=== PATIENT | female | born 1990 | race American Indian/Alaskan Native ===

== ENCOUNTER 2020-04-28 23:46 | Observation (INO) | payer SELFPAY ==
[2020-04-29 01:26] LABS: Basophils % (Auto) 0.3 % (0.0-1.8); Eosinophils % (Auto) 0.4 % (0.0-4.3); Hematocrit 40.7 % (30.3-42.9); Hemoglobin 13.6 gm/dl (10.1-14.3); Lymphocytes # (Auto) 2.9 K/mm3 (1.2-5.4); Lymphocytes % (Auto) 32.3 % (13.4-35.0); Mean Corpuscular HGB Conc 33 % (30-34); Mean Corpuscular Volume 91 fl (79-97); Monocytes # (Auto) 0.8 K/mm3 (0.0-0.8); Monocytes % (Auto) 8.4 % (0.0-7.3); Platelet Count 288 K/mm3 (140-440); Red Blood Count 4.45 M/mm3 (3.65-5.03); Red Cell Distribution Width 13.8 % (13.2-15.2)
--- NOTE | 2020-04-29 01:29 | Emergency Department Report ---
ED General Adult HPI - General Chief complaint: Nausea/Vomiting/Diarrhea Stated complaint: /VOMITING BLOOD PUI?: No Time Seen by Provider: 04/29/20 01:24 Source: patient Mode of arrival: Ambulatory Limitations: No Limitations - History of Present Illness Initial comments: Patient is a 29-year-old female that presents emergency room with complaints of nausea and vomiting. Patient states that her nausea vomiting started yesterday. Patient states there is nausea vomiting is worsening. Patient states she is now seeing blood streaks in her vomitus. Denies clots in her vomit. Patient denies abdominal pain. Patient denies fever and chills. Patient denies cough. Patient denies pelvic pain. Patient denies vaginal bleeding. Patient denies loss of fluid per vagina. Patient denies dysuria. Patient states her nausea vomiting is better with rest and NPO. Patient states the vomiting is worse with eating and movement. Patient states she is approximately 10 weeks . Patient states she did a home test and then saw her [facility] and had a urine test at the [facility] office. Patient states she has never had an ultrasound. Patient states she has not confirmed IUP yet. Patient states the CL[facility]D DEVELOPER advised her to see a high risk because she has had 3 C-sections already. Patient is a G5, . Patient denies recent travel. Patient denies recent international travel. Patient denies exposure to the novel coronavirus. Patient denies sick contacts. Patient denies fever and chills. Patient denies cough. Patient denies diarrhea. Patient denies coming in contact with anybody with symptoms of the novel coronavirus. -: Sudden Severity scale (0 -10): 0 Improves with: rest Worsens with: eating Associated Symptoms: nausea/vomiting. denies: confusion, chest pain, cough, diaphoresis, fever/chills, headaches, loss of appetite, malaise, rash, seizure, shortness of breath, syncope, weakness Treatments Prior to Arrival: none - Related Data Allergies Allergy/AdvReac Type Severity Reaction Status Date / Time No Known Allergies Allergy Unverified 04/29/20 00:26 ED Review of Systems ROS: Stated complaint: /VOMITING BLOOD Other details as noted in HPI Constitutional: denies: chills, fever Eyes: denies: eye pain, eye discharge, vision change ENT: denies: ear pain, throat pain Respiratory: denies: cough, shortness of breath, wheezing Cardiovascular: denies: chest pain, palpitations Endocrine: no symptoms reported Gastrointestinal: as per HPI, nausea, vomiting. denies: abdominal pain, diarrhea Genitourinary: denies: urgency, dysuria, discharge Musculoskeletal: denies: back pain, joint swelling, arthralgia Skin: denies: rash, lesions Neurological: denies: headache, weakness, paresthesias Psychiatric: denies: anxiety, depression Hematological/Lymphatic: denies: easy bleeding, easy bruising ED Past Medical Hx - Past Medical History Previous Medical History?: Yes Additional medical history: Obesity - Surgical History Past Surgical History?: Yes Additional Surgical History: X3. - Family History Family history: no significant - Social History Smoking Status: Never Smoker Substance Use Type: None ED Physical Exam - General Limitations: No Limitations General appearance: alert, in no apparent distress, obese - Head Head exam: Present: atraumatic, normocephalic - Eye Eye exam: Present: normal appearance - ENT ENT exam: Present: mucous membranes moist - Neck Neck exam: Present: normal inspection - Respiratory Respiratory exam: Present: normal lung sounds bilaterally. Absent: respiratory distress, wheezes, rales - Cardiovascular Cardiovascular Exam: Present: regular rate, normal rhythm. Absent: systolic murmur, diastolic murmur, rubs, gallop - GI/Abdominal GI/Abdominal exam: Present: soft, normal bowel sounds. Absent: distended, tenderness - Extremities Exam Extremities exam: Present: normal inspection - Back Exam Back exam: Present: normal inspection - Neurological Exam Neurological exam: Present: alert, oriented X3 - Psychiatric Psychiatric exam: Present: normal affect, normal mood - Skin Skin exam: Present: warm, dry, intact, normal color. Absent: rash ED Course Vital Signs 04/29/20 00:28 Temperature 98.0 F Pulse Rate 99 H Respiratory 18 Rate Blood Pressure 155/99 O2 Sat by Pulse 98 Oximetry - Reevaluation(s) Reevaluation #1: Patient complains of nausea. Patient states she has not vomited since being in the ER. Patient was given fluids and Zofran. 04/29/20 02:26 Reevaluation #2: I discussed all results with patient. I discussed plan of care with patient. Patient agrees with plan of care and admission. Patient to be admitted to the [facility] service. 04/29/20 03:40 - Consultations Consultation #1: I discussed case with Dr. Hassan. Dr. Hassan agrees with admission. Patient will be admitted to mother-baby. 04/29/20 03:40 ED Medical Decision Making - Lab Data Result diagrams: 04/29/20 00:55 04/29/20 00:55 - Radiology Data Radiology results: report reviewed Ultrasound Report Signed Patient: MARS NASH#: [id number] : 1990 Acct:[id number] Age/Sex: 29 / F ADM Date: 04/28/20 Loc: ED Attending Dr: Ordering Physician: ZAHIDA BARRIOS III, MD Date of Service: 04/29/20 Procedure(s): US transvaginal Accession Number(s): [id number] cc: ZAHIDA BARRIOS III, MD ULTRASOUND OBSTETRIC Indication: n/v. preg Findings: Transabdominal and transvaginal imaging is performed. There is a single, viable intrauterine . [place]-rump length = 2.66 cm = 9 weeks, 3 day(s). heart rate is 169 beats per minute. The ovaries are not visualized. There is no free fluid. Impression: Single, viable intrauterine with estimated sonographic age of 9 weeks, 3 day(s). . - Medical Decision Making Patient is a 29-year-old female that presents emergency room with complaints of nausea, vomiting, blood streaking in her vomitus, . Patient is a A1. Patient is currently 10 weeks . Patient has not had confirmatory ultrasound. Patient had labs done which are consistent with metabolic acidosis, hyperglycemia and ketones in the urine. Patient given fluids and antiemetics. Patient's antiemetics improved her nausea. Patient had an ultrasound done which confirms a 9-week IUP. Based on the patient's metabolic abnormalities, the patient will be admitted to the mother-baby and [facility] service for further evaluation and treatment and observation. I discussed this with the CLOUD DEVELOPER attending, Dr. Hassan. Dr. Hassan has recommended admission. - Differential Diagnosis Nausea, vomiting, , Critical Care Time: Yes Critical care time in (mins) excluding proc time.: 35 Critical care attestation.: If time is entered above; I have spent that time in minutes in the direct care of this critically ill patient, excluding procedure time. Critical Care Time: 35 MINUTES ED Disposition Clinical Impression: Hyperglycemia, Metabolic acidosis Nausea & vomiting Qualifiers: Vomiting type: unspecified Vomiting Intractability: non-intractable Qualified Code(s): R11.2 - Nausea with vomiting, unspecified Qualifiers: Weeks of gestation: 9 weeks Qualified Code(s): Z3A.09 - 9 weeks gestation of Disposition: DC-01 TO HOME OR SELFCARE Is pt being admited?: Yes Does the pt Need Aspirin: No Condition: Critical Time of Disposition: 03:40
[2020-04-29 01:43] LABS: Alanine Aminotransferase 12 units/L (7-56); Albumin 3.9 g/dL (3.9-5); Blood Urea Nitrogen 7 mg/dL (7-17); Calcium 9.6 mg/dL (8.4-10.2); Hemolysis Index 8
[2020-04-29 01:48] LABS: BUN/Creatinine Ratio 10
[2020-04-29] MEDS ORDERED: SODIUM CHLORIDE 0.9% 1000 ML 1,000 ML IV ONE ×2 (02:24→03:43)
[2020-04-29] MEDS ORDERED: ONDANSETRON 4 MG/2 ML INJ IV ONE (02:24)
--- NOTE | 2020-04-29 02:33 | Ultrasound Report ---
ULTRASOUND OBSTETRIC Indication: n/v. preg Findings: Transabdominal and transvaginal imaging is performed. There is a single, viable intrauterine . [place]-rump length = 2.66 cm = 9 weeks, 3 day(s). heart rate is 169 beats per minute. The ovaries are not visualized. There is no free fluid. Impression: Single, viable intrauterine with estimated sonographic age of 9 weeks, 3 day(s). Signer Name: Ryan Cabrera MD Signed: 04/29/2020 2:28 AM Workstation Name: [id number]
--- NOTE | 2020-04-29 02:33 | Ultrasound Report ---
ULTRASOUND OBSTETRIC Indication: n/v. preg Findings: Transabdominal and transvaginal imaging is performed. There is a single, viable intrauterine . [place]-rump length = 2.66 cm = 9 weeks, 3 day(s). heart rate is 169 beats per minute. The ovaries are not visualized. There is no free fluid. Impression: Single, viable intrauterine with estimated sonographic age of 9 weeks, 3 day(s). Signer Name: Ryan Cabrera MD Signed: 04/29/2020 2:28 AM Workstation Name: [id number]
[2020-04-29 02:56] LABS: Bacteria,Urine 1+ /HPF (Negative); Bilirubin,Urine NEG (Negative); Blood,Urine NEG (Negative); Color,Urine Straw (Yellow); Mucus,Urine FEW /HPF; Protein,Urine <15 mg/dL mg/dL (Negative); Urobilinogen,Urine < 2.0 mg/dL (<2.0)
[2020-04-29 06:51] VITALS: BP 131/86
[2020-04-29] MEDS ORDERED: SODIUM CHLORIDE 0.9% 1000 ML 1,000 ML IV SCH (11:30)
--- NOTE | 2020-04-29 13:03 | History and Physical Report ---
History of Present Illness Date of examination: 04/29/20 Date of admission: 04/29/20 03:38 Chief complaint: I'm saw some blood when I threw up History of present illness: Pt is a 29year old who presents to the Ed with complaint of nausea and vomiting in at approximately 9 weeks gestation. Pt reports seeing some blood in her vomitus. During the evaluation, patient was found to have markedly elevated blood sugar, severe glucosuria and ketones. Her HgbA1C was 11, all of which are consistent with poorly controlled diabetes, however, the patient angela es any history of the same. ED doctor wanted to admit patient for hydration and monitoring. Past History Past Medical History: diabetes, other (obesity) Past Surgical History: section (x3) Social history: single Medications and Allergies Allergies Allergy/AdvReac Type Severity Reaction Status Date / Time No Known Allergies Allergy Unverified 04/29/20 00:26 Active Meds: Active Medications Sodium Chloride (Nacl 0.9% 1000 Ml) 1,000 mls @ 125 mls/hr IV DIRECT GALA Review of Systems All systems: negative Constitutional: fatigue Gastrointestinal: nausea, vomiting - Vital Signs Vital signs: Vital Signs Temp Pulse Resp BP Pulse Ox 98.0 F 99 H 18 155/99 98 04/29/20 00:28 04/29/20 00:28 04/29/20 00:28 04/29/20 00:28 04/29/20 00:28 Temp Pulse Resp BP Pulse Ox 98.1 F 89 18 131/86 98 04/29/20 03:00 04/29/20 06:34 04/29/20 06:34 04/29/20 06:34 04/29/20 06:34 - Physical Exam Breasts: Positive: deferred Cardiovascular: Regular rate, Normal S1, Normal S2 Lungs: Positive: Clear to auscultation, Normal air movement Abdomen: Positive: normal appearance (obese), soft, normal bowel sounds Results Result Diagrams: 04/29/20 00:55 04/29/20 00:55 Abnormal lab results 04/29/20 04/29/20 04/29/20 Range/Units 00:55 00:55 00:55 Daniels % (Auto) 8.4 H (0.0-7.3) % Sodium 132 L (137-145) mmol/L Chloride 97.9 L (98-107) mmol/L Carbon Dioxide 21 L (22-30) mmol/L Glucose 394 H (65-100) mg/dL Hemoglobin A1c (4-6) % HCG, Quant 47180 H (0-4) mIU/mL Ur Specific Helen (1.003-1.030) Urine WBC (Auto) (0.0-6.0) /HPF 04/29/20 04/29/20 Range/Units 01:26 07:25 Daniels % (Auto) (0.0-7.3) % Sodium (137-145) mmol/L Chloride (98-107) mmol/L Carbon Dioxide (22-30) mmol/L Glucose (65-100) mg/dL Hemoglobin A1c 11.8 H (4-6) % HCG, Quant (0-4) mIU/mL Ur Specific Helen 1.036 H (1.003-1.030) Urine WBC (Auto) 7.0 H (0.0-6.0) /HPF All other labs normal. Assessment and Plan IUP at 9weeks here for hyperemeses and found to likely be diabetic. WIll admit for hydration and observation. If patient can tolerate food, she will be able to be discharged.
--- NOTE | 2020-04-29 13:08 | Discharge Summary ---
Providers - Providers Date of Admission: 04/29/20 03:38 Date of discharge: 04/29/20 Attending physician: MICHELA SCOTT Primary care physician: DES SABILLON MD Hospitalization Reason for admission: other (hyperemesis, diabetes) Discharge diagnosis: other (hyperemesis, new onset diabetes) Hospital course: Pt was transferred to [facility] and continued on iv fluids. She reported no other episodes of vomiting after finishing her meal. Her HgbA1C was 11,which is highly indicative of ongoing diabetes. Condition at discharge: Stable Disposition: - TO HOME OR SELFCARE Plan - Provider Discharge Summary Activity: routine Diet: other (low carbohydrate, no sugar) Instructions: other (Follow up with ob this week for management of diabetes) Additional instructions: [] Smoking cessation referral if applicable(refer to patient education folder for contact #) [] Refer to [facility] Booklet Call your doctor immediately for: * Fever > 100.5 * Heavy vaginal bleeding ( >1 pad per hour) * Severe persistent headache * Shortness of breath * Reddened, hot, painful area to leg or breast * Drainage or odor from incision. * Keep incision clean and dry at all times and follow doctor's instructions regarding bathing/showering - Follow up plan Follow up: PRIMARY CARE, [Primary Care Provider] - 2-3 Days
== END 2020-04-29 14:30 | disposition home or self-care (01) ==
LOC: ED 23:46 → OB 04-29 03:38
PROVIDERS: ADMIT Obstetrics & Gynecology; ATTEND Obstetrics & Gynecology
DX: O21.9 Vomiting of pregnancy, unspecified (principal); O24.911 Unspecified diabetes mellitus in pregnancy, first trimester; O99.211 Obesity complicating pregnancy, first trimester; O26.891 Other specified pregnancy related conditions, first trimester; E87.2 Acidosis; Z3A.09 9 weeks gestation of pregnancy; Z98.891 History of uterine scar from previous surgery
CPT/HCPCS: 36415; 76801; 76830; 80053; 81001; 83036; 83690; 84702; 85025; 96361; 96374; 99291; G0378; J2405; J7030